=== PATIENT | male | born 1965 ===

== ENCOUNTER 2019-12-17 14:22 | Emergency (ER) | payer MEDICAID ==
[~2019-12-17] VITALS: Ht 213.4 cm; Wt 133.8 kg
[2019-12-17 15:17] LABS: BASOPHILS # (AUTO) 0.04 x10^3/uL (0-0.1); BASOPHILS % (AUTO) 1 % (0-1); EOSINOPHILS # (AUTO) 0.18 x10^3/uL (0-0.4); EOSINOPHILS % (AUTO) 3 % (1-7); LYMPHOCYTES % (AUTO) 34 % (22-44); MD NO; MEAN CORPUSCULAR HEMOGLOBIN 31.1 pg (27.5-34.5); MEAN CORPUSCULAR HGB CONC 33.8 g/dL (33.2-36.2); MEAN CORPUSCULAR VOLUME 91.8 fL (81-97); MEAN PLATELET VOLUME 7.6 fL (7.4-10.4); MONOCYTES # (AUTO) 0.57 x10^3/uL (0.2-0.8); MONOCYTES % (AUTO) 8 % (2-9); NEUTROPHILS # (AUTO) 3.83 x10^3/uL (1.8-6.8); NEUTROPHILS % (AUTO) 55 % (42-75); PLATELET COUNT 199 x10^3/uL (130-400); RED CELL DISTRIBUTION WIDTH 12.7 % (9.4-14.8)
[2019-12-17 15:50] LABS: ANION GAP 8 mmol/L (5-15); CALCIUM 9.7 mg/dL (8.5-10.1); CHLORIDE 101 mmol/L (98-107)
[2019-12-17 15:54] LABS: ALANINE AMINOTRANSFERASE 38 U/L (12-78); ALKALINE PHOSPHATASE 148 U/L (45-117); BILIRUBIN,TOTAL 1.7 mg/dL (0.2-1.0); CREATININE 0.99 mg/dL (0.7-1.3); TOTAL PROTEIN 8.2 g/dL (6.4-8.2)
--- NOTE | 2019-12-17 16:14 | NUR ---
[employer]: PT AMBULATORY WITH STEADY GAIT TO ROOM AT THIS TIME. LEA
--- NOTE | 2019-12-17 16:18 | NUR ---
PATIENT ARRIVES WITH A WOUND TO RIGHT BIG TOE - APPEARS TO BE A CALLUS THAT HAS BEEN PICKED AT. HE IS DIABETIC, AND STATES ITS BEEN THERE YEARS. STATES IT GETS THICK AND HURTS SO HE PICKS IT OFF.
[2019-12-17 17:10] VITALS: BP 188/102
--- NOTE | 2019-12-17 17:12 | NUR ---
dressed wound with abx cream and foam, and did discharge teaching re: follow care and s/s infection
== END 2019-12-17 17:30 | disposition home or self-care (01) ==
LOC: ED 17:15
DX: S91.131A Puncture wound without foreign body of right great toe without damage to nail, initial encounter (principal); E11.65 Type 2 diabetes mellitus with hyperglycemia; B35.1 Tinea unguium; X58.XXXA Exposure to other specified factors, initial encounter; Y93.89 Activity, other specified; Y92.89 Other specified places as the place of occurrence of the external cause; Y99.8 Other external cause status
CPT/HCPCS: 36415; 80053; 85025; 99284